=== PATIENT | male | born 1995 | race Caucasian/White ===

== ENCOUNTER 2017-11-19 09:51 | Inpatient (IN) | payer OTHER ==
[2017-11-19] VITALS (12 sets, daily range): BP systolic 86–101; BP diastolic 20–71
[~2017-11-19] VITALS: Ht 162.6 cm; Wt 69.0 kg
[2017-11-19 11:03] LABS: BASOPHIL % 0.1 % (0-2); PLATELET COUNT 389 x10^3mcL (130-400)
[2017-11-19 11:04] LABS: microscopic required? YES; urine erythrocyte NEGATIVE (NEGATIVE)
[2017-11-19 11:07] LABS: RED CELL DISTRIBUTION WIDTH 15.1 % (11.5-14.5)
[2017-11-19 11:29] LABS: CALCIUM 7.8 mg/dL (8.5-10.1); CARBON DIOXIDE 26.1 mmol/L (21-32); CREATININE SERUM 2.3 mg/dL (0.7-1.3); POTASSIUM SERUM 4.4 mmol/L (3.5-5.1)
[2017-11-19 11:34] LABS: BILIRUBIN TOTAL 0.3 mg/dL (0.20-1.00); MAGNESIUM 2.4 mg/dL (1.8-2.4)
[2017-11-19 11:36] LABS: ALBUMIN 2.3 g/dL (3.4-5.0); TOTAL PROTEIN, SERUM 5.5 g/dL (6.4-8.2)
[2017-11-19] MEDS ORDERED: PEPCID20 MG GT (11:39)
[2017-11-19] MEDS ORDERED: COLACE100 MG GT (11:40)
[2017-11-19] MEDS ORDERED: KEPPRA1000 M1 GT (11:41)
[2017-11-19] MEDS ORDERED: FLUDROCORTISON0.1 MG GT (11:41)
[2017-11-19] MEDS ORDERED: METOPROLOL TART50 MG GT (11:42)
[2017-11-19] MEDS ORDERED: ELIQUIS2.5 MG GT (11:43)
[2017-11-19] MEDS ORDERED: SENNA8.6 M2 GT (11:43)
[2017-11-19] MEDS ORDERED: [UNRECOGNIZED DRUG - OTHER] OP (11:45)
[2017-11-19] MEDS ORDERED: ACETAMINOP160 MG/52 GT (11:46)
[2017-11-19] MEDS ORDERED: ACETAMINOPHEN500 M5 GT (11:47)
[2017-11-19] MEDS ORDERED: DULCOLAX10 M1 RC (11:49)
[2017-11-19] MEDS ORDERED: MOM GT (11:49)
[2017-11-19 13:43] LABS: LIPASE 1270 IU/L (73-393); PHOSPHOROUS 6.4 mg/dL (2.5-4.9)
[2017-11-19 13:52] LABS: T3 TOTAL 0.7 ng/mL
[2017-11-19 13:59] LABS: AMYLASE 372 U/L (25-115); CHOLESTEROL 68 mg/dL (<200); CHOLESTEROL/HDL RATIO 3.6; HDL CHOLESTEROL 19 mg/dL (40-60); TRIGLYCERIDES < 15 mg/dL (<150)
[2017-11-19 14:16] LABS: FREE T4 0.83 ng/dL (0.76-1.46); FREE THYROXINE INDEX 1.7 ug/dL (1.4-4.5); T4(THYROXINE) 4.5 ug/dL (4.7-13.3)
[2017-11-20] VITALS (20 sets, daily range): BP systolic 86–112; BP diastolic 42–68
[2017-11-20 04:40] LABS: PLATELET COUNT 151 x10^3mcL (130-400); RED CELL DISTRIBUTION WIDTH 14.2 % (11.5-14.5)
[2017-11-20 04:41] LABS: BASOPHIL % 0.2 % (0-2)
[2017-11-20 04:55] LABS: CALCIUM 6.6 mg/dL (8.5-10.1); CARBON DIOXIDE 19.4 mmol/L (21-32); CREATININE SERUM 1.8 mg/dL (0.7-1.3); MAGNESIUM 2.3 mg/dL (1.8-2.4); POTASSIUM SERUM 3.5 mmol/L (3.5-5.1)
[2017-11-20 05:13] LABS: PHOSPHOROUS 9.2 mg/dL (2.5-4.9)
[2017-11-21] VITALS (17 sets, daily range): BP systolic 91–112; BP diastolic 41–62
[2017-11-21 05:34] LABS: BASOPHIL % 0 % (0-2); PLATELET COUNT 55 x10^3mcL (130-400); RED CELL DISTRIBUTION WIDTH 15.2 % (11.5-14.5)
[2017-11-21 05:44] LABS: CALCIUM 7.2 mg/dL (8.5-10.1); CARBON DIOXIDE 20.2 mmol/L (21-32); CREATININE SERUM 2.1 mg/dL (0.7-1.3); PHOSPHOROUS 4.2 mg/dL (2.5-4.9)
[2017-11-21 05:53] LABS: POTASSIUM SERUM 2.8 mmol/L (3.5-5.1)
[2017-11-22] VITALS (19 sets, daily range): BP systolic 94–111; BP diastolic 38–69
[2017-11-22 05:42] LABS: CALCIUM 7.4 mg/dL (8.5-10.1); CARBON DIOXIDE 23.6 mmol/L (21-32); CREATININE SERUM 2.2 mg/dL (0.7-1.3); MAGNESIUM 1.7 mg/dL (1.8-2.4); PHOSPHOROUS 2.4 mg/dL (2.5-4.9)
[2017-11-22 05:50] LABS: RED CELL DISTRIBUTION WIDTH 15.1 % (11.5-14.5)
[2017-11-22 05:51] LABS: BASOPHIL % 0 % (0-2)
[2017-11-22 05:52] LABS: PLATELET COUNT 15 x10^3mcL (130-400)
[2017-11-22 05:58] LABS: POTASSIUM SERUM 2.3 mmol/L (3.5-5.1)
[2017-11-23] VITALS (11 sets, daily range): BP systolic 85–126; BP diastolic 32–61; Ht 162.6 cm; Wt 69.0 kg
[2017-11-23 05:57] LABS: BASOPHIL % 0.2 % (0-2); CALCIUM 7.7 mg/dL (8.5-10.1); CREATININE SERUM 1.9 mg/dL (0.7-1.3); MAGNESIUM 1.8 mg/dL (1.8-2.4); PHOSPHOROUS 1.9 mg/dL (2.5-4.9)
[2017-11-23 05:58] LABS: RED CELL DISTRIBUTION WIDTH 15.6 % (11.5-14.5)
[2017-11-23 06:00] LABS: PLATELET COUNT 5 x10^3mcL (130-400)
== END 2017-11-23 23:00 | disposition expired | DRG 720 ==
LOC: ED 09:51 → IC 12:21
PROVIDERS: Emergency Medicine; Internal Medicine
PROC: 5A1945Z Respiratory Ventilation, 24-96 Consecutive Hours (ICD-10-PCS; principal; 2017-11-19)
PROC: 5A12012 Performance of Cardiac Output, Single, Manual (ICD-10-PCS; 2017-11-19)
PROC: 02HV33Z Insertion of Infusion Device into Superior Vena Cava, Percutaneous Approach (ICD-10-PCS; 2017-11-19)
PROC: B548ZZA Ultrasonography of Superior Vena Cava, Guidance (ICD-10-PCS; 2017-11-19)
DX: A41.52 Sepsis due to Pseudomonas (principal); I21.4 Non-ST elevation (NSTEMI) myocardial infarction; D65 Disseminated intravascular coagulation [defibrination syndrome]; I46.9 Cardiac arrest, cause unspecified; J96.21 Acute and chronic respiratory failure with hypoxia; G93.41 Metabolic encephalopathy; E43 Unspecified severe protein-calorie malnutrition; J69.0 Pneumonitis due to inhalation of food and vomit; J81.1 Chronic pulmonary edema; Z93.0 Tracheostomy status; N17.0 Acute kidney failure with tubular necrosis; R65.21 Severe sepsis with septic shock; R53.2 Functional quadriplegia; E87.6 Hypokalemia; E83.42 Hypomagnesemia; A41.81 Sepsis due to Enterococcus; E83.39 Other disorders of phosphorus metabolism; Z93.1 Gastrostomy status; Z74.01 Bed confinement status; Z87.820 Personal history of traumatic brain injury; Z68.1 Body mass index [BMI] 19.9 or less, adult; Z98.2 Presence of cerebrospinal fluid drainage device; Z90.49 Acquired absence of other specified parts of digestive tract
CPT/HCPCS: 36556; 36600; 83880; 84439; 85378; 87046; 87046-59; A4628; J0770; J1200; J1580; J1642; J1720; J2020; J2185; J2250; J2370; J2543; J2765; J3010; J3370; J3480; J3490; J7030; J7040; J7050; J7620; P9035; Q0092